=== PATIENT | female | born 1985 | race Two or more races ===

== ENCOUNTER 2021-05-10 10:42 | Emergency (ER) | payer OTHER ==
[2021-05-10 11:29] VITALS: BP 122/68; PULSE 98; TEMP 98; BMI 25.6
[2021-05-10 12:14] LABS: BASO % 0.7 % (0-2.0); EOS % 0.7 % (0-4.5); HEMOGLOBIN 9.9 GM/dL (10.7-15.3); MCH 25.7 pg (25.7-33.7); MCHC 32.9 g/dl (32.0-36.0); MEAN PLT VOLUME 6.6 fl (7.5-11.1); MONO % 6.2 % (3.8-10.2); NEUT % 75.4 % (42.8-82.8); PLATELET COUNT 408 10^3/uL (134-434); RBC 3.85 M/mm3 (3.60-5.2); RDW 17.5 % (11.6-15.6); WHITE BLOOD COUNT 6.7 K/mm3 (4.0-10.0)
[2021-05-10 12:39] LABS: CHLORIDE 110 mmol/L (98-107); SODIUM 140 mmol/L (136-145)
[2021-05-10 12:41] LABS: CALCIUM 8.7 mg/dL (8.5-10.1)
[2021-05-10 12:42] LABS: ALBUMIN 3.8 g/dl (3.4-5.0); ANION GAP 4 MMOL/L (8-16); BLOOD UREA NITROGEN 10.1 mg/dL (7-18); CO2 26 mmol/L (21-32); GLUCOSE,RANDOM 81 mg/dL (74-106)
[2021-05-10 12:45] LABS: CREATININE 0.7 mg/dL (0.55-1.3); SGOT/AST 12 U/L (15-37); SGPT/ALT 15 U/L (13-61)
[2021-05-10 12:46] LABS: BILIRUBIN,TOTAL 0.3 mg/dL (0.2-1); TOT PROT 7.9 g/dl (6.4-8.2)
[2021-05-10 12:47] LABS: ALK PHOS 51 U/L (45-117)
[2021-05-10] MEDS ORDERED: IBUPROFEN 600 MG TABLET (FP) PO ONE ×2 (12:58→12:59)
== END 2021-05-10 13:48 | disposition home or self-care (01) ==
LOC: JERFT 10:42 → JER 10:42 → JERFT 13:48
DX: R51.9 Headache, unspecified (principal); R09.81 Nasal congestion; Z11.52 Encounter for screening for COVID-19
CPT/HCPCS: 36415; 70450-TC; 80053; 84702; 85025; 99284-25; C9803; U0003; U0005

== ENCOUNTER 2022-05-12 20:57 | Emergency (ER) | payer OTHER ==
[2022-05-12 21:31] VITALS: BP 115/81; PULSE 85; RESP 20; TEMP 98.2; BMI 26.6
[2022-05-12 22:30] LABS: EPI CELLS 27 /uL (0-25.1); HYALINE CASTS 8 /uL (0-3.1); PH,URINE 6.5 (5.0-8.0); URINE APPEARANCE CLOUDY; URINE BACTERIA 1517 /uL (0-1359); URINE BILIRUBIN NEGATIVE (NEGATIVE); URINE COLOR YELLOW; URINE GLUCOSE (UA) NEGATIVE (NEGATIVE); URINE KETONE NEGATIVE (NEGATIVE); URINE LEUK ESTERASE 1+ (NEGATIVE); URINE NITRITE NEGATIVE (NEGATIVE); URINE PROTEIN 2+ (NEGATIVE); URINE RBC 179 /uL (0-23.9); URINE UROBILINOGEN 0.2 mg/dL (0.2-1.0); URINE WBC 228 /uL (0-25.8)
[2022-05-13] MEDS ORDERED: IBUPROFEN 600 MG TABLET (FP) PO ONE ×2 (00:21→00:22)
== END 2022-05-13 00:37 | disposition home or self-care (01) ==
LOC: JERFT 20:57
DX: N30.90 Cystitis, unspecified without hematuria (principal)
CPT/HCPCS: 81003; 87086; 87186; 99283-25